=== PATIENT | male | born 1995 | race Caucasian/White ===

== ENCOUNTER 2019-06-04 05:31 | Emergency (ER) | payer OTHER ==
[~2019-06-04] VITALS: Ht 167.6 cm; Wt 70.5 kg
[~2019-06-04 05:31] MED LIST: CETIRIZINE5 MG; CETIRIZINE5 MG PO; DOXYCYCL HYC100 MG PO; FIORICET PO; FLONASE NASAL50 MCG; NO HOME MEDS; XYZAL5 MG PO; ZITHROMAX500 MG PO; ZPAK PO; ZYRTEC-D AL1 OR
[2019-06-04] MEDS ORDERED: IBUPROFEN600 MG PO (06:27)
[2019-06-04 06:44] VITALS: BP 128/87
== END 2019-06-04 06:44 | disposition home or self-care (01) | DRG 125 ==
LOC: ED 05:31
DX: H57.89 Other specified disorders of eye and adnexa (principal)

== ENCOUNTER 2021-07-14 10:24 | Emergency (ER) | payer OTHER ==
[~2021-07-14] VITALS: Ht 167.6 cm; Wt 68.0 kg
[~2021-07-14 10:24] MED LIST changes: +IBUPROFEN600 MG PO
[2021-07-14] MEDS ORDERED: DOXYCYC MONO100 M2 PO (13:44)
[2021-07-14 13:49] VITALS: BP 132/793
== END 2021-07-14 13:55 | disposition home or self-care (01) | DRG 605 ==
LOC: ED 10:24
PROC: 0HQGXZZ Repair Left Hand Skin, External Approach (ICD-10-PCS; principal; 2021-07-14)
DX: S61.012A Laceration without foreign body of left thumb without damage to nail, initial encounter (principal); W26.0XXA Contact with knife, initial encounter; Y93.89 Activity, other specified; Y92.89 Other specified places as the place of occurrence of the external cause; Y99.0 Civilian activity done for income or pay

== ENCOUNTER 2021-07-30 15:40 | Emergency (ER) | payer OTHER ==
[~2021-07-30] VITALS: Ht 167.6 cm; Wt 68.0 kg
[~2021-07-30 15:40] MED LIST changes: +DOXYCYC MONO100 M2 PO
== END 2021-07-30 17:03 | disposition home or self-care (01) | DRG 950 ==
LOC: ED 15:40
DX: S61.012D Laceration without foreign body of left thumb without damage to nail, subsequent encounter (principal); X58.XXXD Exposure to other specified factors, subsequent encounter